=== PATIENT | male | born 1965 | race African-American/Black ===

== ENCOUNTER 2024-11-12 18:44 | Emergency (ER) | payer BC, SELFPAY ==
--- NOTE | ~2024-11-12 | XR_ITS ---
CLINICAL HISTORY: Fall 3 view, pelvis and left hip Comparison: None Findings: The bones are intact. Mild DJD of both hip joints with joint space narrowing The soft tissues are unremarkable. IMPRESSION: No acute findings. This document has been electronically signed by: Dayami Canada MD on 11/12/2024 21:32:01
--- NOTE | ~2024-11-12 | CT_ITS ---
CLINICAL HISTORY: S/P FALL CT chest, abdomen and pelvis without contrast Comparison: None Findings: The heart size is normal. The visualized thyroid and mediastinum are unremarkable. No consolidation or effusion. Unremarkable gallbladder and solid organs. No urolithiasis. No bowel obstruction, pneumoperitoneum, or pneumatosis. Pelvic contents unremarkable. Normal appendix. The bones are intact. IMPRESSION: 1. Unremarkable chest CT. 2. Unremarkable abdomen and pelvis CT. This document has been electronically signed by: Dayami Canada MD on 11/12/2024 21:25:24
--- NOTE | ~2024-11-12 | CT_ITS ---
CLINICAL HISTORY: FALL, PAIN CT head without contrast Comparison: None Findings: No intra-axial mass, midline shift, hydrocephalus, or acute hemorrhage. No significant atrophy-like change or white matter disease. The visualized paranasal sinuses and mastoid air cells are normal. The orbits are within normal limits. No skull fracture. IMPRESSION: 1. No acute intracranial findings specifically no acute intracranial hemorrhage.. This document has been electronically signed by: Dayami Canada MD on 11/12/2024 21:16:09
[2024-11-12 18:57] VITALS: BP 129/74; BP 138/96; PULSE 89; PULSE 90; RESP 18; TEMP 36.7; O2SAT 100; BMI 31.0
--- NOTE | 2024-11-12 20:01 | ED_ITS ---
HPI - General Adult General Chief complaint: Fall Stated complaint: unwit mechanical fall,+ loc, neck/back pain Time Seen by Provider: 11/12/24 19:19 Source: patient Mode of arrival: ambulatory Limitations: no limitations History of Present Illness ED Provider: Bong Sahu HPI narrative: 59-year-old male healthy with no past medical history presents to ED for fall. Patient states while walking to [place] he slipped on the ice and fell onto his left side complaining of left hip. Patient admits to hitting head. Patient is now on any blood thinners. Related Data Allergies Allergy/AdvReac Type Severity Reaction Status Date / Time No Known Allergies Allergy Unverified 11/12/24 19:22 Review of Systems 2 Review of Systems: Left hip pain Yes all other systems are reviewed and are negative [facility] Social History Social History Advance Directives: No Advance Directives Information Provided: No Do you have a plan to hurt others: No Plan Physical Exam ED Vital Signs: Vital Signs - 24 hr 11/12/24 18:57 Temperature 98.0 F Pulse Rate 89 Respiratory Rate 18 Blood Pressure 129/74 Pulse Oximetry 100 Oxygen Delivery Method Room Air BMI result Body Mass Index 31.0 Const General: cooperative, healthy appearing, comfortable, no acute distress, well developed, alert, awake and Physically active Orientation/consciousness: patient oriented x3 [facility] Head: Yes normal to inspection, Yes No palpable skull fracture present, Yes normocephalic and Yes atraumatic Eyes General: appearance normal, both eyes and all related structures Neck Neck: Yes normal visual inspection, Yes full ROM, Yes no lymphadenopathy, Yes no meningeal signs, Yes trachea midline, Yes supple, No anterior neck swelling and No tender Chest Chest palpation & inspection: normal inspection of the chest and normal palpation of entire chest wall Resp Effort & Inspection: normal respiratory effort and able to speak in complete sentences Auscultation: clear to auscultation bilaterally Cardio Jugular venous distension: no JVD Heart sounds: S1 normal heart sound present and S2 normal heart sound present GI Inspection: Yes normal to inspection Palpation (GI): Soft to palpation, not firm, nontender, no guarding and not rigid General: Yes no CVA tenderness Back/Spine/Pelvis Back: no CVA tenderness and No back tenderness Skin General skin exam: no rashes or lesions noted, elasticity normal and turgor normal Neuro General: patient oriented x3, gait normal, tone normal, moves all extremities, Normal light touch and pain sensation, no meningeal signs, no focal motor deficits, CN's II-XI intact bilaterally and normal sensation to monofilament Extrem Upper/lower leg/hip images: 2 1. Positive for tenderness on palpation. Negative for crepitus ecchymosis or deformity. Negative for internal external rotation of lower extremity. Vascular neuro exam intact. Motor exam is limited due to pain. Psych Appearance: grossly normal, well kempt and not disheveled Course Reevaluation(s) Reevaluation #1: Patient received in sign-out at change of shift pending cervical spine CT. This shows no acute traumatic findings of the cervical spine. The patient will be stable for discharge Time: 22:29 Medical Decision Making Medical Decision Making MDM Narrative: 59-year-old male with no past medical history presents to ED for fall. Patient states left hip pain. Decreased range of motion of left hip due to pain. Patient will be sent for head CT, cervical spine CT scan chest CT abdominal CT scan and left hip x-ray. Patient had mechanical fall 10:23 signed out to [facility] pending Cervical Spine CT scan Differential Diagnosis Differential Diagnoses: The differential diagnosis associated with the presentation includes (Fracture, brain bleed, neck fracture) Admission/Observation Consideration of admission/observation: Escalation of care including admission/observation considered Independent Interpretation I performed an independent interpretation of an: CT Scan Radiology Impression Discussion of test interpretation with radiology: I have reviewed the radiologist's reading. Radiologist Impression: Independent Historian Clinical information obtained from an independent historian. History obtained from or confirmed by: Other (patient) Discharge Plan Discharge Clinical Impression: Fall Patient Disposition: Home, Self-Care Instructions: Fall Prevention for Older Adults (ED) Additional Instructions: Your CT scans did not show any evidence of significant traumatic injury. Follow up with your primary doctor, return for new or worsening symptoms Interventions: ED Discharge Assessment Last Done: 11/12/24 23:40 Discharge Date/Time: 11/12/24 23:41 Print Language: French
[2024-11-12 23:40] VITALS: BP 129/74; PULSE 89; RESP 18; TEMP 36.7; O2SAT 100
== END 2024-11-12 23:41 | disposition home or self-care (01) ==
PROVIDERS: Emergency Provider Emergency Medicine; PCP Internal Medicine
DX: S19.9XXA Unspecified injury of neck, initial encounter (principal); S39.92XA Unspecified injury of lower back, initial encounter; R10.2 Pelvic and perineal pain; R51.9 Headache, unspecified; M54.2 Cervicalgia; R07.89 Other chest pain; M25.552 Pain in left hip; W00.0XXA Fall on same level due to ice and snow, initial encounter; Y93.89 Activity, other specified; Y92.511 Restaurant or cafe as the place of occurrence of the external cause; Y99.8 Other external cause status
CPT/HCPCS: 70450; 71250; 72125; 73502; 74176; 99282; 99284

== ENCOUNTER → 2024-11-12 19:00 | Outpatient (BNV) | payer BC, SELFPAY | PROVIDERS: Emergency Provider Emergency Medicine; PCP Internal Medicine; Visit Provider Student in an Organized Health Care Education/Training Program | DX: M25.552 Pain in left hip (principal) | CPT/HCPCS: 70450; 71250; 72125; 73502; 74176 ==

== ENCOUNTER 2024-12-03 13:31 | Outpatient (RCR) | payer BC, SELFPAY | END 2024-12-18 09:01 | disposition home or self-care (01) | LOC: HO.PTCHIC 13:31 | PROVIDERS: PCP Internal Medicine; Visit Provider Physician Assistant Medical | DX: M25.552 Pain in left hip (principal); M79.605 Pain in left leg | CPT/HCPCS: 97110; 97161 ==